=== PATIENT | female | born 1950 | race Hispanic/Latino ===

== ENCOUNTER 2018-07-29 14:04 | Emergency (ER) | payer MEDICARE ==
--- NOTE | 2018-07-29 14:15 | Emergency Department Report ---
Blank Doc - Documentation Documentation: This is a 67-year-old female that presents to the ED for [facility]. Was sent by [facility]. Denies any SI/HI. This initial assessment/diagnostic orders/clinical plan/treatment(s) is/are subject to change based on patient's health status, clinical progression and re- assessment by fellow clinical providers in the ED. Further treatment and workup at subsequent clinical providers discretion. Patient/guardians urged not to elope from the ED as their condition may be serious if not clinically assessed and managed. Initial orders include: 1- Patient sent to MAIN ED for further evaluation and treatment 2- labs 3- UA
[2018-07-29 14:44] LABS: Basophils # (Auto) 0.1 K/mm3 (0.0-0.1); Basophils % (Auto) 1.2 % (0.0-1.8); Eosinophils # (Auto) 0.3 K/mm3 (0.0-0.4); Eosinophils % (Auto) 4.2 % (0.0-4.3); Hematocrit 39.2 % (30.3-42.9); Hemoglobin 13.4 gm/dl (10.1-14.3); Lymphocytes # (Auto) 2.9 K/mm3 (1.2-5.4); Lymphocytes % (Auto) 35.3 % (13.4-35.0); Mean Corpuscular HGB Conc 34 % (30-34); Mean Corpuscular Volume 84 fl (79-97); Monocytes # (Auto) 0.5 K/mm3 (0.0-0.8); Monocytes % (Auto) 6.6 % (0.0-7.3); Platelet Count 195 K/mm3 (140-440); Red Blood Count 4.66 M/mm3 (3.65-5.03); Red Cell Distribution Width 14.8 % (13.2-15.2)
[2018-07-29 17:19] LABS: Bilirubin,Urine NEG (Negative); Blood,Urine SM (Negative); Urobilinogen,Urine < 2.0 mg/dL (<2.0)
[2018-07-29 17:20] LABS: Amphetamine Screen,Urine PRESUMPTIVE NEGATIVE; Benzodiazepines Screen,Urine PRESUMPTIVE NEGATIVE; Cannabinoid Screen,Urine PRESUMPTIVE NEGATIVE; Cocaine Screen,Urine PRESUMPTIVE NEGATIVE; Color,Urine Yellow (Yellow); Methadone Screen,Urine PRESUMPTIVE NEGATIVE; Opiate Screen,Urine PRESUMPTIVE NEGATIVE
[2018-07-29] MEDS ORDERED: ROCEPHIN/NS 1 GM/50 ML 1 GM/50 ML BAG IV ONE (18:12)
--- NOTE | 2018-07-29 18:20 | Emergency Department Report ---
ED General Adult HPI - General Chief complaint: Psych Stated complaint: MEDICAL CLEARANCE Time Seen by Provider: 07/29/18 14:13 Source: patient Mode of arrival: Ambulatory Limitations: No Limitations - History of Present Illness Initial comments: The patient presents to the emergency department for medical clearance for geriatric psych. Patient complains of some abdominal pain for the last week and painful urination. Patient denies homicidal or suicidal ideation. Patient also denies chest pain, sob, or headache. -: Gradual Location: abdomen Radiation: non-radiation Severity scale (0 -10): 3 Consistency: constant Improves with: none Worsens with: none Associated Symptoms: denies other symptoms Treatments Prior to Arrival: none - Related Data Previous Rx's Medication Instructions Recorded Last Taken Type cephALEXin [Keflex] 500 mg PO Q6HR #28 capsule 07/29/18 Unknown Rx Allergies Allergy/AdvReac Type Severity Reaction Status Date / Time ibuprofen Allergy Unknown Verified 07/29/18 14:05 morphine Allergy Unknown Verified 07/29/18 14:05 Sulfa (Sulfonamide Allergy Unknown Verified 07/29/18 14:05 Antibiotics) ED Review of Systems ROS: Stated complaint: MEDICAL CLEARANCE Other details as noted in HPI Comment: All other systems reviewed and negative Constitutional: denies: chills, fever Eyes: denies: eye pain, eye discharge, vision change ENT: denies: ear pain, throat pain Respiratory: denies: cough, shortness of breath, wheezing Cardiovascular: denies: chest pain, palpitations Endocrine: no symptoms reported Gastrointestinal: denies: abdominal pain, nausea, diarrhea Genitourinary: denies: urgency, dysuria, discharge Musculoskeletal: denies: back pain, joint swelling, arthralgia Skin: denies: rash, lesions Neurological: denies: headache, weakness, paresthesias Psychiatric: denies: anxiety, depression Hematological/Lymphatic: denies: easy bleeding, easy bruising ED Past Medical Hx - Past Medical History Hx Hypertension: Yes Hx Heart Attack/AMI: Yes Hx Diabetes: Yes - Social History Smoking Status: Never Smoker Substance Use Type: None - Medications Home Medications: Home Medications Medication Instructions Recorded Confirmed Last Taken Type cephALEXin [Keflex] 500 mg PO Q6HR #28 capsule 07/29/18 Unknown Rx ED Physical Exam - General Limitations: No Limitations General appearance: alert, in no apparent distress - Head Head exam: Present: atraumatic, normocephalic - Eye Eye exam: Present: normal appearance, PERRL, EOMI - ENT ENT exam: Present: mucous membranes moist - Neck Neck exam: Present: normal inspection - Respiratory Respiratory exam: Present: normal lung sounds bilaterally. Absent: respiratory distress - Cardiovascular Cardiovascular Exam: Present: regular rate, normal rhythm. Absent: systolic murmur, diastolic murmur, rubs, gallop - GI/Abdominal GI/Abdominal exam: Present: soft, normal bowel sounds. Absent: distended, tenderness - Extremities Exam Extremities exam: Present: normal inspection - Back Exam Back exam: Present: normal inspection - Neurological Exam Neurological exam: Present: alert, oriented X3, CN II-XII intact. Absent: motor sensory deficit - Psychiatric Psychiatric exam: Present: normal affect, normal mood - Skin Skin exam: Present: warm, dry, intact, normal color. Absent: rash ED Course Vital Signs 07/29/18 07/29/18 14:13 16:30 Temperature 97.3 F L 98.3 F Pulse Rate 73 72 Respiratory 16 16 Rate Blood Pressure 102/57 Blood Pressure 128/79 [Right] O2 Sat by Pulse 97 99 Oximetry ED Medical Decision Making - Lab Data Result diagrams: 07/29/18 14:28 07/29/18 14:28 Lab Results 07/29/18 07/29/18 07/29/18 Range/Units 14:28 14:28 14:28 WBC 8.2 (4.5-11.0) K/mm3 RBC 4.66 (3.65-5.03) M/mm3 Hgb 13.4 (10.1-14.3) gm/dl Hct 39.2 (30.3-42.9) % MCV 84 (79-97) fl MCH 29 (28-32) pg MCHC 34 (30-34) % RDW 14.8 (13.2-15.2) % Plt Count 195 (140-440) K/mm3 Lymph % (Auto) 35.3 H (13.4-35.0) % [place] % (Auto) 6.6 (0.0-7.3) % Eos % (Auto) 4.2 (0.0-4.3) % Baso % (Auto) 1.2 (0.0-1.8) % Lymph # 2.9 (1.2-5.4) K/mm3 [place] # 0.5 (0.0-0.8) K/mm3 Eos # 0.3 (0.0-0.4) K/mm3 Baso # 0.1 (0.0-0.1) K/mm3 Seg Neutrophils % 52.7 (40.0-70.0) % Seg Neutrophils # 4.3 (1.8-7.7) K/mm3 Sodium 132 L (137-145) mmol/L Potassium 3.9 (3.6-5.0) mmol/L Chloride 92.8 L (98-107) mmol/L Carbon Dioxide 21 L (22-30) mmol/L Anion Gap 22 mmol/L BUN 23 H (7-17) mg/dL Creatinine 1.4 H (0.7-1.2) mg/dL Estimated GFR 37 ml/min BUN/Creatinine Ratio 16 % Glucose 405 H (65-100) mg/dL Calcium 9.0 (8.4-10.2) mg/dL Urine Color (Yellow) Urine Turbidity (Clear) Urine pH (5.0-7.0) Ur Specific Harrison (1.003-1.030) Urine Protein (Negative) mg/dL Urine Glucose (UA) (Negative) mg/dL Urine Ketones (Negative) mg/dL Urine Blood (Negative) Urine Nitrite (Negative) Urine Bilirubin (Negative) Urine Urobilinogen (<2.0) mg/dL Ur Leukocyte Esterase (Negative) Urine WBC (Auto) (0.0-6.0) /HPF Urine RBC (Auto) (0.0-6.0) /HPF U Epithel Cells (Auto) (0-13.0) /HPF Urine WBC Clumps /HPF Salicylates < 0.3 L (2.8-20.0) mg/dL Urine Opiates Screen Urine Methadone Screen Acetaminophen (10.0-30.0) ug/mL Ur Barbiturates Screen Ur Phencyclidine Scrn Ur Amphetamines Screen U Benzodiazepines Scrn Urine Cocaine Screen U Marijuana (THC) Screen Drugs of Abuse Note Plasma/Serum Alcohol (0-0.07) % 07/29/18 07/29/18 07/29/18 Range/Units 14:28 14:28 16:54 WBC (4.5-11.0) K/mm3 RBC (3.65-5.03) M/mm3 Hgb (10.1-14.3) gm/dl Hct (30.3-42.9) % MCV (79-97) fl MCH (28-32) pg MCHC (30-34) % RDW (13.2-15.2) % Plt Count (140-440) K/mm3 Lymph % (Auto) (13.4-35.0) % [place] % (Auto) (0.0-7.3) % Eos % (Auto) (0.0-4.3) % Baso % (Auto) (0.0-1.8) % Lymph # (1.2-5.4) K/mm3 [place] # (0.0-0.8) K/mm3 Eos # (0.0-0.4) K/mm3 Baso # (0.0-0.1) K/mm3 Seg Neutrophils % (40.0-70.0) % Seg Neutrophils # (1.8-7.7) K/mm3 Sodium (137-145) mmol/L Potassium (3.6-5.0) mmol/L Chloride (98-107) mmol/L Carbon Dioxide (22-30) mmol/L Anion Gap mmol/L BUN (7-17) mg/dL Creatinine (0.7-1.2) mg/dL Estimated GFR ml/min BUN/Creatinine Ratio % Glucose (65-100) mg/dL Calcium (8.4-10.2) mg/dL Urine Color Yellow (Yellow) Urine Turbidity Cloudy (Clear) Urine pH 5.0 (5.0-7.0) Ur Specific Harrison 1.017 (1.003-1.030) Urine Protein 30 mg/dl (Negative) mg/dL Urine Glucose (UA) >=500 (Negative) mg/dL Urine Ketones Neg (Negative) mg/dL Urine Blood Sm (Negative) Urine Nitrite Neg (Negative) Urine Bilirubin Neg (Negative) Urine Urobilinogen < 2.0 (<2.0) mg/dL Ur Leukocyte Esterase Lg (Negative) Urine WBC (Auto) 167.0 H (0.0-6.0) /HPF Urine RBC (Auto) 1.0 (0.0-6.0) /HPF U Epithel Cells (Auto) < 1.0 (0-13.0) /HPF Urine WBC Clumps 1+ /HPF Salicylates (2.8-20.0) mg/dL Urine Opiates Screen Urine Methadone Screen Acetaminophen < 5.0 L (10.0-30.0) ug/mL Ur Barbiturates Screen Ur Phencyclidine Scrn Ur Amphetamines Screen U Benzodiazepines Scrn Urine Cocaine Screen U Marijuana (THC) Screen Drugs of Abuse Note Plasma/Serum Alcohol < 0.01 (0-0.07) % 07/29/18 Range/Units 16:54 WBC (4.5-11.0) K/mm3 RBC (3.65-5.03) M/mm3 Hgb (10.1-14.3) gm/dl Hct (30.3-42.9) % MCV (79-97) fl MCH (28-32) pg MCHC (30-34) % RDW (13.2-15.2) % Plt Count (140-440) K/mm3 Lymph % (Auto) (13.4-35.0) % [place] % (Auto) (0.0-7.3) % Eos % (Auto) (0.0-4.3) % Baso % (Auto) (0.0-1.8) % Lymph # (1.2-5.4) K/mm3 [place] # (0.0-0.8) K/mm3 Eos # (0.0-0.4) K/mm3 Baso # (0.0-0.1) K/mm3 Seg Neutrophils % (40.0-70.0) % Seg Neutrophils # (1.8-7.7) K/mm3 Sodium (137-145) mmol/L Potassium (3.6-5.0) mmol/L Chloride (98-107) mmol/L Carbon Dioxide (22-30) mmol/L Anion Gap mmol/L BUN (7-17) mg/dL Creatinine (0.7-1.2) mg/dL Estimated GFR ml/min BUN/Creatinine Ratio % Glucose (65-100) mg/dL Calcium (8.4-10.2) mg/dL Urine Color (Yellow) Urine Turbidity (Clear) Urine pH (5.0-7.0) Ur Specific Harrison (1.003-1.030) Urine Protein (Negative) mg/dL Urine Glucose (UA) (Negative) mg/dL Urine Ketones (Negative) mg/dL Urine Blood (Negative) Urine Nitrite (Negative) Urine Bilirubin (Negative) Urine Urobilinogen (<2.0) mg/dL Ur Leukocyte Esterase (Negative) Urine WBC (Auto) (0.0-6.0) /HPF Urine RBC (Auto) (0.0-6.0) /HPF U Epithel Cells (Auto) (0-13.0) /HPF Urine WBC Clumps /HPF Salicylates (2.8-20.0) mg/dL Urine Opiates Screen Presumptive negative Urine Methadone Screen Presumptive negative Acetaminophen (10.0-30.0) ug/mL Ur Barbiturates Screen Presumptive negative Ur Phencyclidine Scrn Presumptive negative Ur Amphetamines Screen Presumptive negative U Benzodiazepines Scrn Presumptive negative Urine Cocaine Screen Presumptive negative U Marijuana (THC) Screen Presumptive negative Drugs of Abuse Note Disclamer Plasma/Serum Alcohol (0-0.07) % - Radiology Data Radiology results: report reviewed - Medical Decision Making Discussed results with patient medically cleared for geriatric psych unit Critical care attestation.: If time is entered above; I have spent that time in minutes in the direct care of this critically ill patient, excluding procedure time. ED Disposition Clinical Impression: UTI (urinary tract infection) Disposition: TO HOME OR SELFCARE Is pt being admited?: No Does the pt Need Aspirin: No Condition: Stable Instructions: Urinary Tract Infection in Women (ED) Additional Instructions: Return if worse Prescriptions: cephALEXin [Keflex] 500 mg PO Q6HR #28 capsule Referrals: PRIMARY CARE, [Primary Care Provider] - 3-5 Days [facility] [Provider Group] - 3-5 Days [facility] [Provider Group] - 3-5 Days Time of Disposition: 18:47
--- NOTE | 2018-07-29 18:34 | Cat Scan Report ---
PROCEDURE: CT ABDOMEN PELVIS WO CON TECHNIQUE: Computerized axial tomography of the abdomen and pelvis was performed without intravenous contrast. This study is performed without intravascular contrast material and its sensitivity for ab dominal and pelvic pathology, including neoplasms, inflammation, abscess, free fluid, thrombosis, art erial dissection and infarction, is reduced compared with a contrast enhanced study. CT DOSE LENGTH PRODUCT: 858.2 mGycm HISTORY: abdominal pain COMPARISONS: None . FINDINGS: Visualized lower thorax: No significant abnormality. Liver: Normal size and attenuation. Spleen: Normal size and attenuation. Gallbladder and biliary system: There has been cholecystectomy. Pancreas: Normal. Adrenals: Normal. Kidneys: Renal vascular calcifications are present. There is a 1 cm heterogeneous lesion in the left kidney lower pole, which appears to contain a focus of fat attenuation, which may be an angiomyolipom a. GI tract: There are anastomotic sutures in the sigmoid colon. No bowel obstruction or inflammation . Small hiatal hernia Lymph nodes and mesentery: Normal. Vasculature: Normal.. Bladder: Diffuse urinary bladder wall thickening. Reproductive organs: Uterus is absent. Peritoneum: No free fluid. Musculoskeletal structures: There is hardware in the proximal right femur. Other: None. IMPRESSION: Diffuse urinary bladder wall thickening. Correlate for cystitis. Small hiatal hernia. 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 This document is electronically signed by Karen Almaguer MD., Jul 29 2018 06:33:07 PM ET
[2018-07-29] MEDS ORDERED: XYLOCAINE 1% 20 mL INFILTRATI ONE (18:48)
[2018-07-29] MEDS ORDERED: XYLOCAINE 1% MPF 5 mL INFILTRATI ONE (19:43)
[2018-07-29] MEDS ORDERED: ROCEPHIN IM ONE (19:43)
[2018-07-29] MEDS ORDERED: HumuLIN R ONE (20:11)
[2018-07-29] MEDS ORDERED: HumuLIN R SUB-Q ONE (20:13)
[2018-07-29 21:20] VITALS: BP 103/57
== END 2018-07-29 20:30 | disposition home or self-care (01) ==
LOC: ED 14:04
DX: N39.0 Urinary tract infection, site not specified (principal); I10 Essential (primary) hypertension; I25.2 Old myocardial infarction; E11.9 Type 2 diabetes mellitus without complications; Z88.6 Allergy status to analgesic agent; Z88.2 Allergy status to sulfonamides
CPT/HCPCS: 36415; 74176; 80048; 80307; 81001; 82962; 85025; 96372; 99284; G0480; J0696; 80320; J1815

== ENCOUNTER 2018-07-29 17:08 | Inpatient (IN) | payer MEDICARE ==
[2018-07-29] MEDS ORDERED: VISTARIL PO PRN (17:39)
[2018-07-29] MEDS ORDERED: HALDOL IM PRN (21:12)
[2018-07-29] MEDS ORDERED: HALDOL PO PRN (21:12)
[2018-07-29] MEDS ORDERED: ATIVAN IM PRN (21:14)
[2018-07-29] MEDS ORDERED: DESYREL PO PRN (21:16)
[2018-07-29] MEDS: BUSPAR PO PRN (22:45)
[2018-07-29] MEDS ORDERED: D50W (25GM) Syringe IV PRN (23:03)
[2018-07-30] MEDS: KEFLEX PO SCH ×4 (00:04→21:17)
--- NOTE | 2018-07-30 01:53 | Consultation ---
<ADAN SANTIAGO - Last Filed: 07/30/18 02:04> History of Present Illness - Reason for Consult Consult date: 07/29/18 DM Requesting physician: KAYLYNN MCKAY - History of Present Illness 67-year-old female who is a resident at [facility] with history of debility, insulin dependent diabetes, hypertension, hypothyr oidism, and MO. She was recently diagnosed with urinary tract infection and given Keflex for treatment. Patient is seen in consultation in the [facility] unit for medical management of diabetes and hypertension. Patient has history of noncompliance with anti-psychotic, antihypertensive, and antiglycemic medications. She was referred to [facility] for evaluation and management of psych meds. At the time of my examination patient is in bed with no signs of acute distress. She is able to follow commands and answers questions appropriately. At baseline she uses a wheelchair to assist with ambulation. She is able to ambulate independently but severe debility. Denies SI/HI, chest pain, headache, and cough. Past History Past Medical History: acute MO, diabetes, hypertension, hypothyroidism, other (psychiatric history, ) Social history: no significant social history Medications and Allergies Allergies Allergy/AdvReac Type Severity Reaction Status Date / Time ibuprofen Allergy Unknown Verified 07/29/18 14:05 morphine Allergy Unknown Verified 07/29/18 14:05 Sulfa (Sulfonamide Allergy Unknown Verified 07/29/18 14:05 Antibiotics) Home Medications Medication Instructions Recorded Confirmed Last Taken Type Insulin Glargine/Lixisenatide 36 units SUB-Q DAILY 07/29/18 07/29/18 Unknown History Levothyroxine Sodium 25 mcg PO DAILY 07/29/18 07/29/18 Unknown History NovoLOG 100 UNITS/ML VIAL 20 units SUB-Q AC 07/29/18 07/29/18 Unknown History cephALEXin [Keflex] 500 mg PO Q6HR #28 capsule 07/29/18 07/29/18 Unknown Rx Amlodipine Besylate 5 mg PO DAILY 07/30/18 07/30/18 Unknown History Atorvastatin Calcium 20 mg PO QHS 07/30/18 07/30/18 Unknown History Calcitriol [Rocaltrol] 0.25 mcg PO DAILY 07/30/18 07/30/18 Unknown History Clopidogrel 75 mg PO QHS 07/30/18 07/30/18 Unknown History Depakote Sprinkle 250 mg PO BID 07/30/18 07/30/18 Unknown History Famotidine [Pepcid] 20 mg PO QHS 07/30/18 07/30/18 Unknown History Folic Acid 400 mcg PO DAILY 07/30/18 07/30/18 Unknown History Gabapentin 400 mg PO BID 07/30/18 07/30/18 Unknown History Metoprolol Tartrate 50 mg PO BID 07/30/18 07/30/18 Unknown History Tamsulosin 0.4 mg PO QHS 07/30/18 07/30/18 Unknown History Trazodone HCl 50 mg PO QHS 07/30/18 07/30/18 Unknown History diphenhydrAMINE 25 mg PO Q8HR PRN 07/30/18 07/30/18 Unknown History oxyCODONE /ACETAMINOPHEN 5 - 325 mg PO Q8HR PRN 07/30/18 07/30/18 Unknown History Active Meds: Active Medications Buspirone HCl (Buspar) 7.5 mg PO TID PRN PRN Reason: Anxiety Last Admin: 07/29/18 22:45 Dose: 7.5 mg Documented by: Cephalexin (Keflex) 500 mg PO Q6HR RAY Last Admin: 07/30/18 00:04 Dose: 500 mg Documented by: Dextrose (D50w (25gm) Syringe) 50 ml IV PRN PRN PRN Reason: Hypoglycemia Haloperidol (Haldol) 2 mg PO Q6HR PRN PRN Reason: Agitation Haloperidol Lactate (Haldol) 2 mg IM Q6H PRN PRN Reason: Agitation Insulin Glargine (Lantus) 10 units SUB-Q BID [facility] Insulin Human Lispro (Humalog) 0 unit SUB-Q ACHS [facility]; Protocol Levothyroxine Sodium (Synthroid) 25 mcg PO DAILY@0600 [facility] Lorazepam (Ativan) 1 mg IM Q6H PRN PRN Reason: Agitation Lorazepam (Ativan) 1 mg PO Q4H PRN PRN Reason: Agitation Trazodone HCl (Desyrel) 50 mg PO QHS PRN PRN Reason: Insomnia Last Admin: 07/29/18 22:45 Dose: 50 mg Documented by: Review of Systems All systems: negative (reviewed and no additional remarkable complaints except as noted below) Gastrointestinal: abdominal pain Genitourinary Female: dysuria Exam - Physical Exam Narrative exam: Physical exam General appearance: Present: No acute distress - EENT Eyes: Present: PERRL, EOM intact ENT: hearing intact, poor dentition - Neck Neck: Present: supple, normal ROM - Respiratory Respiratory effort: Non-labored Respiratory: Clear Throughout - Cardiovascular Heart rate: 71 (bpm) Rhythm: Sinus rhythm, regular Heart Sounds: Present: S1 & S2. Absent: rub, click - Extremities Extremities: no ischemia, pulses intact, - Peripheral Assessment Peripheral Pulses: within normal limits - Abdominal General gastrointestinal: soft, non-tender, normal bowel sounds - Integumentary Integumentary: Present: warm, dry - Musculoskeletal Musculoskeletal: Limited mobility, bilateral lower extremity weakness - Psychiatric Psychiatric: cooperative - Constitutional Vitals: Temp Pulse Resp BP Pulse Ox 97.4 F L 71 18 119/71 100 07/29/18 22:00 07/29/18 22:00 07/29/18 22:00 07/29/18 22:00 07/29/18 22:00 Results - Labs Labs: Abnormal lab results 07/29/18 07/29/18 Range/Units 14:28 21:33 POC Glucose 323 H (70-105) Hemoglobin A1c 11.5 H (4-6) % Assessment and Plan UTI RANJAN HTN Insulin-dependent diabetes- uncontrolled Hypothyroidism Hyponatremia Hx of MO Psychiatric disorder- management by primary Plan: Monitor BP Resume Norvasc 5 mg daily, metoprolol 50 mg daily Continue Keflex for UTI POC BG monitoring Scheduled Lantus and SSI coverage HgbA1c 11.5 Am Labs: CMP Monitor BUN/Cr On Statin and Plavix Start Aspirin Resume home Synthroid <EZIMORADANIELLE Giovanna - Last Filed: 07/31/18 07:11> Medications and Allergies Active Meds: Active Medications Amlodipine Besylate (Norvasc) 5 mg PO DAILY [facility] Last Admin: 07/30/18 10:00 Dose: 5 mg Documented by: Aspirin (Baby Aspirin) 81 mg PO QDAY [facility] Last Admin: 07/30/18 09:59 Dose: 81 mg Documented by: Atorvastatin Calcium (Lipitor) 20 mg PO QHS [facility] Last Admin: 07/31/18 02:24 Dose: Not Given Documented by: Buspirone HCl (Buspar) 7.5 mg PO TID PRN PRN Reason: Anxiety Last Admin: 07/30/18 21:19 Dose: 7.5 mg Documented by: Calcitriol (Rocaltrol) 0.25 mcg PO DAILY [facility] Last Admin: 07/30/18 10:07 Dose: 0.25 mcg Documented by: Cephalexin (Keflex) 500 mg PO Q12HR [facility] Stop: 08/02/18 22:01 Last Admin: 07/30/18 21:17 Dose: 500 mg Documented by: Clopidogrel Bisulfate (Plavix) 75 mg PO QHS [facility] Last Admin: 07/31/18 02:25 Dose: Not Given Documented by: Dextrose (D50w (25gm) Syringe) 50 ml IV PRN PRN PRN Reason: Hypoglycemia Divalproex Sodium (Depakote Sprinkle) 250 mg PO BID [facility] Last Admin: 07/31/18 02:23 Dose: Not Given Documented by: Famotidine (Pepcid) 20 mg PO QHS [facility] Last Admin: 07/31/18 02:25 Dose: Not Given Documented by: Gabapentin (Neurontin) 400 mg PO BID [facility] Last Admin: 07/30/18 21:17 Dose: 400 mg Documented by: Haloperidol (Haldol) 2 mg PO Q6HR PRN PRN Reason: Agitation Haloperidol Lactate (Haldol) 2 mg IM Q6H PRN PRN Reason: Agitation Insulin Glargine (Lantus) 10 units SUB-Q BID [facility] Last Admin: 07/30/18 22:00 Dose: 10 units Documented by: Insulin Human Lispro (Humalog) 0 unit SUB-Q [facility]; Protocol Last Admin: 07/30/18 21:59 Dose: 6 unit Documented by: Levothyroxine Sodium (Synthroid) 25 mcg PO DAILY@0600 [facility] Last Admin: 07/31/18 07:08 Dose: 25 mcg Documented by: Lorazepam (Ativan) 1 mg IM Q6H PRN PRN Reason: Agitation Lorazepam (Ativan) 1 mg PO Q4H PRN PRN Reason: Agitation Metoprolol Tartrate (Lopressor) 50 mg PO BID [facility] Last Admin: 07/31/18 02:24 Dose: Not Given Documented by: Miscellaneous Medication (Folic Acid) 400 mcg PO DAILY [facility] Tamsulosin HCl (Flomax) 0.4 mg PO QHS [facility] Last Admin: 07/31/18 02:24 Dose: Not Given Documented by: Trazodone HCl (Desyrel) 50 mg PO QHS PRN PRN Reason: Insomnia Last Admin: 07/29/18 22:45 Dose: 50 mg Documented by: Trazodone HCl (Desyrel) 50 mg PO QHS [facility] Last Admin: 07/31/18 02:24 Dose: Not Given Documented by: Exam - Constitutional Vitals: Temp Pulse Resp BP Pulse Ox 97.8 F 69 18 166/76 99 07/30/18 21:40 07/30/18 21:40 07/30/18 21:40 07/30/18 21:40 07/30/18 21:40 Results - Labs CBC & Chem 7: 07/30/18 08:45 Labs: Abnormal lab results 07/30/18 07/30/18 07/30/18 Range/Units 08:45 11:43 16:45 Sodium 135 L (137-145) mmol/L Chloride 96.6 L (98-107) mmol/L BUN 30 H (7-17) mg/dL Glucose 297 H (65-100) mg/dL POC Glucose 249 H 336 H (70-105) Albumin 3.4 L (3.9-5) g/dL Triglycerides 335 H (2-149) mg/dL HDL Cholesterol 38 L (40-59) mg/dL 07/30/18 Range/Units 20:23 Sodium (137-145) mmol/L Chloride (98-107) mmol/L BUN (7-17) mg/dL Glucose (65-100) mg/dL POC Glucose 316 H (70-105) Albumin (3.9-5) g/dL Triglycerides (2-149) mg/dL HDL Cholesterol (40-59) mg/dL Assessment and Plan I personally discussed the patient with the [facility]. I agree with the above assessment and plan
[2018-07-30] MEDS: SYNTHROID PO SCH (05:58)
[2018-07-30] MEDS: HumaLOG SUB-Q SCH ×4 (08:19→21:59)
[2018-07-30 09:16] LABS: Albumin 3.4 g/dL (3.9-5); Calcium 8.7 mg/dL (8.4-10.2); Chol/HDL Ratio 4.57 %
[2018-07-30] MEDS: BABY ASPIRIN PO SCH (09:59)
[2018-07-30] MEDS: NEURONTIN PO SCH ×2 (09:59→21:17)
[2018-07-30] MEDS: LOPRESSOR PO SCH (09:59)
[2018-07-30] MEDS: NORVASC PO SCH (10:00)
[2018-07-30] MEDS ORDERED: FOLIC ACID 400 MCG PO SCH (10:00)
[2018-07-30] MEDS: BUSPAR PO PRN ×2 (10:02→21:19)
[2018-07-30] MEDS: ROCALTROL PO SCH (10:07)
[2018-07-30] MEDS: LANTUS SUB-Q SCH ×2 (10:08→22:00)
--- NOTE | 2018-07-30 13:59 | History and Physical Report ---
GP History & Physical - History of Present Illness Date of admission: 07/29/18 Date of Examination: 07/30/18 Reason for Admission: Danger to others, Impaired reality testing, Psychopathology interference, Severe anxiety/depression, Unable to care for self Chief Complaint: I don't know why I am here History of Present Illness: The patient is a 67-year-old female who is a resident at [facility] with history of recent UTI, debility, insulin dependent diabetes, hypertension, hypothyroidism, and MS. [facility] due to behavioral problems that could not be managed at the [facility]. Staffs at the [facility] report that the patient is combative, refuses cares and is disruptive. She is reportedly very agitated and refused to be cleaned up/have her clothes changed after after passing urine and feces on herself. In my interview with the patient, she states that she does not know why she is here. She reports being depressed and anxious but denies SI/HI/AVH/Paranoia. She endorses decreased appetite and poor sleep. Legal Status: Voluntary Patient Problems: Current Active Problems Delirium due to another medical condition (Acute) Dementia with behavioral disturbance (Acute) Reaction to Hospitalization: Accepting Substance History - Substance History Drug Use: none Past psychiatric history - Past Medical History Past Medical History: diabetes, hypertension, hypothyroidism, stroke - past Psychiatric treatment and history Psych: Anxiety (Patient reports bill she was and 3 times, was a [employer] and she is retired. She lives in a [place].) Review of Systems All systems: negative Psychiatric: anxiety, confusion, irritability Results - Results Labs/Vitals: Laboratory Last Values Sodium 135 mmol/L (137-145) L 07/30/18 08:45 Potassium 4.1 mmol/L (3.6-5.0) 07/30/18 08:45 Chloride 96.6 mmol/L (98-107) L 07/30/18 08:45 Carbon Dioxide 26 mmol/L (22-30) 07/30/18 08:45 17 mmol/L 07/30/18 08:45 BUN 30 mg/dL (7-17) H 07/30/18 08:45 1.2 mg/dL (0.7-1.2) 07/30/18 08:45 Estimated GFR 45 ml/min 07/30/18 08:45 25 % 07/30/18 08:45 Glucose 297 mg/dL (65-100) H 07/30/18 08:45 POC Glucose 278 (70-105) H 07/30/18 06:40 11.5 % (4-6) H 07/29/18 14:28 Calcium 8.7 mg/dL (8.4-10.2) 07/30/18 08:45 0.20 mg/dL (0.1-1.2) 07/30/18 08:45 AST 10 units/L (5-40) 07/30/18 08:45 ALT 9 units/L (7-56) 07/30/18 08:45 92 units/L (35-129) 07/30/18 08:45 6.7 g/dL (6.3-8.2) 07/30/18 08:45 3.4 g/dL (3.9-5) L 07/30/18 08:45 1.0 % 07/30/18 08:45 Triglycerides 335 mg/dL (2-149) H 07/30/18 08:45 Cholesterol 174 mg/dL (50-199) 07/30/18 08:45 103 mg/dL (50-130) 07/30/18 08:45 38 mg/dL (40-59) L 07/30/18 08:45 4.57 % 07/30/18 08:45 Last Vital Signs Temp 97.9 F 07/30/18 09:27 Pulse 78 07/30/18 10:00 Resp 16 07/30/18 09:00 BP 137/62 07/30/18 10:00 Pulse Ox 98 07/30/18 09:27 Physical Examination - Constitutional Vitals: Vital Signs Temp Pulse Resp BP Pulse Ox 97.9 F 78 16 137/62 98 07/30/18 09:27 07/30/18 10:00 07/30/18 09:00 07/30/18 10:00 07/30/18 09:27 Temperature -Last 24 Hours Temperature 97.9 F Temperature 97.9 F Temperature 97.5 F Temperature 97.4 F General appearance: Present: no acute distress - EENT Eyes: Present: PERRL, EOM intact ENT: hearing intact, clear oral mucosa - Neck Neck: Present: supple, normal ROM - Respiratory Respiratory effort: normal Mental Status Exam - Vital signs Last Vital Signs Temp 97.9 F 07/30/18 09:27 Pulse 78 07/30/18 10:00 Resp 16 07/30/18 09:00 BP 137/62 07/30/18 10:00 Pulse Ox 98 07/30/18 09:27 - Exam Orientation: place, person Affect: depressed, anxious Mood: congruent with affect Thought Process: Goal Oriented Perceptions: none Speech: normal rate and pattern Concentration: focused Motor activity: agitated Level of consciousness: alert Assessment and Plan - Psychiatric problem (1) Dementia with behavioral disturbance Current Visit: Yes Status: Acute (2) Delirium due to another medical condition Current Visit: Yes Status: Acute (3) UTI (urinary tract infection) Current Visit: No Status: Acute Physician Certification - Certification Statement Physician Certification Statement: This is an acknowledgement statement that ROXANNE LANE is a 67 year old F who requires inpatient psychiatric admission for treatment which could reasonably be expected to improve the patient's condition for Depression Estimated period of time patient will need to remain in the hospital: 7 Plan for post-hospital care: Out-patient care. Plan: Patient will be admitted for inpatient psychiatric evaluation, medication adjustment and close monitoring The patient's behavior, mood, sleep and appetite will be closely monitored. Patient will be enrolled in individual and group therapeutic sessions and encouraged to attend. Patient will be provided with a safe and structured environment. Patient's physical health needs will be addressed by the Hospitalist. Social Assessment will be completed and the Websphere Commerce Consultant will work with patient and family to ensure a suitable and safe disposition Medication adjustment will be made as clinically indicated The patient agreed on the treatment plan, understood the risk, benefit, alternative treatment, potential consequence of no treatment, and gave informed consent.
--- NOTE | 2018-07-30 15:49 | Progress Note ---
Assessment and Plan Assessment and plan: Hospitalist Resident Engineer for DM Patient is a 67-year-old female who is a resident at [facility] with history of debility, insulin dependent diabetes, hypertension, hypothyroidism, and WI. She was recently diagnosed with urinary tract infection and given Keflex for treatment. Patient is seen in consultation in the [facility] for medical management of diabetes and hypertension. Patient has history of noncompliance with anti-psychotic, antihypertensive, and antiglycemic medications. She was referred to [facility] for evaluation and management of psych meds. At the time of my examination patient is in bed with no signs of acute distress. She is able to follow commands and answers questions appropriately. At baseline she uses a wheelchair to assist with am bulation. She is able to ambulate independently but severe debility. DM type 2, uncontrolled hyperglycemia, a1c 11.5, so patient runs very high. UTI, Continue Keflex for UTI, uctx not sent and already on abx, will give for 5 days. RANJAN, vasomotor nephropathy, Cr went from 1.4 to 1.2 HTN Resume Norvasc 5 mg daily, metoprolol 50 mg daily Hypothyroidism: Resume home Synthroid Hyponatremia dehydration, improving Hx of WI Psychiatric disorder- management by primary signing off, page me with any questions. History Interval history: Patient was seen and examined. Follow-up on current diagnosis for DM. No overnight events reported to me. Patient denies any chest pain, shortness breath, nausea/vomiting or severe headaches. Imaging, nursing note, chart, labs and old chart reviewed. Discussed with patient. Gen: WDWN, NAD, Awake, Alert, Orientated HEENT: NCAT, EOMI, PERRL, OP Clear Neck: supple, no adenopathy, no thyromegaly, no JVD CVS/Heart: RRR, normal S1S2, pulses present bilaterally Chest/Lungs: CTA B, Symmetrical chest expansion, good air entry bilaterally GI/Abdomen: soft, NTND, good bowel sounds, no guarding or rebound /Bladder: no suprapubic tenderness, no CVA or paraspinal tenderness Extermity/Skin: no c/c/e, no obvious rash MSK: FROM x 4 Neuro: CN 2-12 grossly intact, no new focal deficits Psych: calm Hospitalist Physical - Constitutional Vitals: Temp Pulse Resp BP Pulse Ox 97.9 F 78 16 137/62 98 07/30/18 09:27 07/30/18 10:00 07/30/18 09:00 07/30/18 10:00 07/30/18 09:27 Results - Labs CBC & Chem 7: 07/30/18 08:45 Labs: Laboratory Last Values Sodium 135 mmol/L (137-145) L 07/30/18 08:45 Potassium 4.1 mmol/L (3.6-5.0) 07/30/18 08:45 Chloride 96.6 mmol/L (98-107) L 07/30/18 08:45 Carbon Dioxide 26 mmol/L (22-30) 07/30/18 08:45 17 mmol/L 07/30/18 08:45 BUN 30 mg/dL (7-17) H 07/30/18 08:45 1.2 mg/dL (0.7-1.2) 07/30/18 08:45 Estimated GFR 45 ml/min 07/30/18 08:45 25 % 07/30/18 08:45 Glucose 297 mg/dL (65-100) H 07/30/18 08:45 POC Glucose 278 (70-105) H 07/30/18 06:40 11.5 % (4-6) H 07/29/18 14:28 Calcium 8.7 mg/dL (8.4-10.2) 07/30/18 08:45 0.20 mg/dL (0.1-1.2) 07/30/18 08:45 AST 10 units/L (5-40) 07/30/18 08:45 ALT 9 units/L (7-56) 07/30/18 08:45 92 units/L (35-129) 07/30/18 08:45 6.7 g/dL (6.3-8.2) 07/30/18 08:45 3.4 g/dL (3.9-5) L 07/30/18 08:45 1.0 % 07/30/18 08:45 Triglycerides 335 mg/dL (2-149) H 07/30/18 08:45 Cholesterol 174 mg/dL (50-199) 07/30/18 08:45 103 mg/dL (50-130) 07/30/18 08:45 38 mg/dL (40-59) L 07/30/18 08:45 4.57 % 07/30/18 08:45 Active Medications - Current Medications Current Medications: Generic Name Dose Route Start Last Admin Trade Name Freq PRN Reason Stop Dose Admin Amlodipine Besylate 5 mg 07/30/18 10:00 07/30/18 10:00 Norvasc PO 5 mg DAILY RAY Administration Aspirin 81 mg 07/30/18 10:00 07/30/18 09:59 Baby Aspirin PO 81 mg QDAY RAY Administration Atorvastatin Calcium 20 mg 07/30/18 22:00 Lipitor PO QHS RAY Buspirone HCl 7.5 mg 07/29/18 21:07 07/30/18 10:02 Buspar PO 7.5 mg TID PRN Administration Anxiety Calcitriol 0.25 mcg 07/30/18 10:00 07/30/18 10:07 Rocaltrol PO 0.25 mcg DAILY RAY Administration Cephalexin 500 mg 07/30/18 00:00 07/30/18 12:37 Keflex PO 500 mg Q6HR RAY Administration Clopidogrel Bisulfate 75 mg 07/30/18 22:00 Plavix PO QHS PENDING SALE TO [facility] Dextrose 50 ml 07/29/18 23:03 D50w (25gm) Syringe IV PRN PRN Hypoglycemia Divalproex Sodium 250 mg 07/30/18 10:00 07/30/18 10:08 Depakote Sprinkle PO 250 mg BID RAY Administration Famotidine 20 mg 07/30/18 22:00 Pepcid PO QHS PENDING SALE TO [facility] Gabapentin 400 mg 07/30/18 10:00 07/30/18 09:59 Neurontin PO 400 mg BID RAY Administration Haloperidol 2 mg 07/29/18 21:12 Haldol PO Q6HR PRN Agitation Haloperidol Lactate 2 mg 07/29/18 21:12 Haldol IM Q6H PRN Agitation Insulin Glargine 10 units 07/30/18 10:00 07/30/18 10:08 Lantus SUB-Q 10 units BID RAY Administration Insulin Human Lispro 0 unit 07/30/18 07:30 07/30/18 12:36 Humalog SUB-Q 3 unit ACHS RAY Administration Protocol Levothyroxine Sodium 25 mcg 07/30/18 06:00 07/30/18 05:58 Synthroid PO 25 mcg DAILY@0600 RAY Administration Lorazepam 1 mg 07/29/18 21:14 Ativan IM Q6H PRN Agitation Lorazepam 1 mg 07/29/18 21:14 Ativan PO Q4H PRN Agitation Metoprolol Tartrate 50 mg 07/30/18 10:00 07/30/18 09:59 Lopressor PO 50 mg BID RAY Administration Miscellaneous Medication 400 mcg 07/30/18 10:00 Folic Acid PO DAILY PENDING SALE TO [facility] Tamsulosin HCl 0.4 mg 07/30/18 22:00 Flomax PO QHS RAY Trazodone HCl 50 mg 07/29/18 21:16 07/29/18 22:45 Desyrel PO 50 mg QHS PRN Administration Insomnia Trazodone HCl 50 mg 07/30/18 22:00 Desyrel PO QHS RAY
[2018-07-30] MEDS ORDERED: DESYREL PO SCH (22:00)
[2018-07-30] MEDS ORDERED: LANTUS SUB-Q SCH (22:00)
[2018-07-31] MEDS: FLOMAX PO SCH ×2 (02:24→21:27)
[2018-07-31] MEDS: LOPRESSOR PO SCH ×2 (02:24→09:26)
[2018-07-31] MEDS: PLAVIX PO SCH ×2 (02:25→22:30)
[2018-07-31] MEDS: PEPCID PO SCH ×2 (02:25→22:30)
[2018-07-31] MEDS: SYNTHROID PO SCH ×2 (07:08→07:25)
[2018-07-31] MEDS: HumaLOG SUB-Q SCH ×4 (08:08→22:00)
[2018-07-31] MEDS: BABY ASPIRIN PO SCH (09:27)
[2018-07-31] MEDS: NORVASC PO SCH (09:27)
[2018-07-31] MEDS: NEURONTIN PO SCH ×3 (09:27→21:27)
[2018-07-31] MEDS: ROCALTROL PO SCH (09:28)
[2018-07-31] MEDS: KEFLEX PO SCH ×2 (09:28→21:35)
[2018-07-31] MEDS: LANTUS SUB-Q SCH ×2 (10:13→22:30)
--- NOTE | 2018-07-31 11:54 | Progress Note ---
Subjective Date of service: 07/31/18 Principal diagnosis: Dementia with behavioral disturbance Subjective Comment: Patient is irritable, depressed, uncooperative with cares and verbally abusive towards staffs. She reports that she did not sleep well last night. Appetite is good. She denies hallucinations, SI/HI. No medication side effect Objective - Criteria for Continued Treatment Criteria for Continued Treatment: Improving Level of Functioning, Improving Treatment / Medication Compliance, Stablizing Level of Functioning, Improving Emotional/Socia - Mental Status Mental Status: Oriented x [address] - Objective Observation Participation Level: Moderate Assessment and Plan - Patient Problems (1) Dementia with behavioral disturbance Current Visit: Yes Status: Acute Plan to address problem: Patient will be admitted for inpatient psychiatric evaluation, medication adjustment and close monitoring The patient's behavior, mood, sleep and appetite will be closely monitored. Patient will be enrolled in individual and group therapeutic sessions and encouraged to attend. Patient will be provided with a safe and structured environment. Patient's physical health needs will be addressed by the Hospitalist. Social Assessment will be completed and the Superintendent Construction will work with patient and family to ensure a suitable and safe disposition Medication adjustment will be made as clinically indicated. Increase Depakote to 250mg tid and Gabapentin to 300mg tid. for mood and anxiety Start Seroquel 50mg qhs for delirium and agitation Start Melatonin 5mg qhs for sleep/wake cycle regulation Discontinue scheduled Trazodone The patient agreed on the treatment plan, understood the risk, benefit, alternative treatment, potential consequence of no treatment, and gave informed consent. ELOS 5 days (2) Delirium due to another medical condition Current Visit: Yes Status: Acute (3) UTI (urinary tract infection) Current Visit: No Status: Acute
[2018-07-31] MEDS: celeXA PO SCH (13:36)
[2018-07-31] MEDS ORDERED: NEURONTIN PO SCH (14:00)
[2018-07-31] MEDS: ATIVAN PO PRN (21:25)
[2018-07-31] MEDS: MELATONIN PO SCH (21:31)
[2018-08-01] MEDS: LOPRESSOR PO SCH ×3 (06:22→18:27)
[2018-08-01] MEDS: SYNTHROID PO SCH (06:23)
[2018-08-01] MEDS: NEURONTIN PO SCH ×3 (06:23→21:16)
[2018-08-01] MEDS: HumaLOG SUB-Q SCH ×4 (09:10→21:17)
[2018-08-01] MEDS: LANTUS SUB-Q SCH ×2 (09:11→21:18)
[2018-08-01] MEDS: BABY ASPIRIN PO SCH (11:05)
[2018-08-01] MEDS: celeXA PO SCH (11:06)
[2018-08-01] MEDS: NORVASC PO SCH (11:06)
[2018-08-01] MEDS: KEFLEX PO SCH ×2 (11:06→21:18)
[2018-08-01] MEDS: ROCALTROL PO SCH (11:11)
--- NOTE | 2018-08-01 18:57 | Progress Note ---
Subjective Date of service: 08/01/18 Principal diagnosis: Dementia with behavioral disturbance Subjective Comment: Patient is improving. She is less irritable, no outbursts today. She slept better last night. Appetite is good. She denies hallucinations, SI/HI. No medication side effect Objective - Criteria for Continued Treatment Criteria for Continued Treatment: Improving Level of Functioning, Improving Treatment / Medication Compliance, Stablizing Level of Functioning, Improving Emotional/Socia - Mental Status Mental Status: Oriented x [address] - Objective Observation Participation Level: Moderate Assessment and Plan - Patient Problems (1) Dementia with behavioral disturbance Current Visit: Yes Status: Acute Plan to address problem: Patient will be admitted for inpatient psychiatric evaluation, medication adjustment and close monitoring The patient's behavior, mood, sleep and appetite will be closely monitored. Patient will be enrolled in individual and group therapeutic sessions and encouraged to attend. Patient will be provided with a safe and structured environment. Patient's physical health needs will be addressed by the Hospitalist. Social Assessment will be completed and the Personnel Adviser will work with patient and family to ensure a suitable and safe disposition Medication adjustment will be made as clinically indicated. Continue Depakote 250mg tid and Gabapentin 300mg tid. for mood and anxiety Continue Seroquel 50mg qhs for delirium and agitation Continue Melatonin 5mg qhs for sleep/wake cycle regulation The patient agreed on the treatment plan, understood the risk, benefit, alternative treatment, potential consequence of no treatment, and gave informed consent. ELOS 2 days (2) Delirium due to another medical condition Current Visit: Yes Status: Acute (3) UTI (urinary tract infection) Current Visit: No Status: Acute
[2018-08-01] MEDS: FLOMAX PO SCH (21:17)
[2018-08-01] MEDS: MELATONIN PO SCH (21:19)
[2018-08-01] MEDS: PEPCID PO SCH (21:19)
[2018-08-01] MEDS: PLAVIX PO SCH (21:19)
[2018-08-02] MEDS: SYNTHROID PO SCH (05:59)
[2018-08-02] MEDS: LOPRESSOR PO SCH ×2 (05:59→17:30)
[2018-08-02] MEDS: HumaLOG SUB-Q SCH ×4 (09:08→21:31)
[2018-08-02] MEDS: NEURONTIN PO SCH ×3 (09:10→20:49)
[2018-08-02] MEDS: celeXA PO SCH (09:12)
[2018-08-02] MEDS: KEFLEX PO SCH ×2 (09:12→21:35)
[2018-08-02] MEDS: BABY ASPIRIN PO SCH (09:12)
[2018-08-02] MEDS: ROCALTROL PO SCH (09:13)
[2018-08-02] MEDS: NORVASC PO SCH (09:15)
[2018-08-02] MEDS: LANTUS SUB-Q SCH ×2 (09:38→21:31)
[2018-08-02] MEDS: ATIVAN PO PRN (09:39)
[2018-08-02] MEDS: FLOMAX PO SCH (21:35)
[2018-08-02] MEDS: MELATONIN PO SCH (21:36)
[2018-08-02] MEDS: PEPCID PO SCH (21:36)
[2018-08-02] MEDS: PLAVIX PO SCH (21:36)
[2018-08-03] MEDS: LOPRESSOR PO SCH ×2 (05:52→17:36)
[2018-08-03] MEDS: SYNTHROID PO SCH (05:53)
--- NOTE | 2018-08-03 07:03 | Progress Note ---
Subjective Date of service: 08/02/18 Principal diagnosis: Dementia with behavioral disturbance Subjective Comment: Patient is doing well. She uses profanities at times but she is less irritable. She slept well last night. Appetite is good. She denies hallucinations, SI/HI. No medication side effect Objective - Criteria for Continued Treatment Criteria for Continued Treatment: Improving Level of Functioning, Improving Treatment / Medication Compliance, Stablizing Level of Functioning, Improving Emotional/Socia - Mental Status Mental Status: Oriented x [address] - Objective Observation Participation Level: Moderate Assessment and Plan - Patient Problems (1) Dementia with behavioral disturbance Current Visit: Yes Status: Acute Plan to address problem: Patient will be admitted for inpatient psychiatric evaluation, medication adjustment and close monitoring The patient's behavior, mood, sleep and appetite will be closely monitored. Patient will be enrolled in individual and group therapeutic sessions and encouraged to attend. Patient will be provided with a safe and structured environment. Patient's physical health needs will be addressed by the Hospitalist. Social Assessment will be completed and the Wildlife Biology Technician will work with patient and family to ensure a suitable and safe disposition Medication adjustment will be made as clinically indicated. Continue Depakote 250mg tid and Gabapentin 300mg tid. for mood and anxiety Continue Seroquel 50mg qhs for delirium and agitation Continue Melatonin 5mg qhs for sleep/wake cycle regulation The patient agreed on the treatment plan, understood the risk, benefit, alternative treatment, potential consequence of no treatment, and gave informed consent. ELOS 1 days (2) Delirium due to another medical condition Current Visit: Yes Status: Acute (3) UTI (urinary tract infection) Current Visit: No Status: Acute
[2018-08-03] MEDS: HumaLOG SUB-Q SCH ×4 (08:59→21:14)
[2018-08-03] MEDS: NEURONTIN PO SCH ×3 (09:03→19:53)
[2018-08-03] MEDS: NORVASC PO SCH (09:49)
[2018-08-03] MEDS: ROCALTROL PO SCH (09:49)
[2018-08-03] MEDS: celeXA PO SCH (09:49)
[2018-08-03] MEDS: BABY ASPIRIN PO SCH (09:50)
[2018-08-03] MEDS: LANTUS SUB-Q SCH ×2 (09:52→21:15)
--- NOTE | 2018-08-03 10:47 | Progress Note ---
Subjective Date of service: 08/03/18 Principal diagnosis: Dementia with behavioral disturbance Subjective Comment: Patient is fine this morning. She is cooperative with cares and takes her medications. She slept well last night. Appetite is good. She denies hallucinations, SI/HI. No medication side effect. She is scheduled for discharge in am tomorrow. Objective - Criteria for Continued Treatment Criteria for Continued Treatment: Improving Level of Functioning, Improving Treatment / Medication Compliance, Stablizing Level of Functioning, Improving Emotional/Socia - Mental Status Mental Status: Oriented x [address] - Objective Observation Participation Level: Moderate Assessment and Plan - Patient Problems (1) Dementia with behavioral disturbance Current Visit: Yes Status: Acute Plan to address problem: Patient will be admitted for inpatient psychiatric evaluation, medication adjustment and close monitoring The patient's behavior, mood, sleep and appetite will be closely monitored. Patient will be enrolled in individual and group therapeutic sessions and encouraged to attend. Patient will be provided with a safe and structured environment. Patient's physical health needs will be addressed by the Hospitalist. Social Assessment will be completed and the Rent And Housing Investigator will work with patient and family to ensure a suitable and safe disposition Medication adjustment will be made as clinically indicated. Continue Depakote 250mg tid and Gabapentin 300mg tid. for mood and anxiety Continue Seroquel 50mg qhs for delirium and agitation Continue Melatonin 5mg qhs for sleep/wake cycle regulation The patient agreed on the treatment plan, understood the risk, benefit, alternative treatment, potential consequence of no treatment, and gave informed consent. ELOS 1 days (2) Delirium due to another medical condition Current Visit: Yes Status: Acute (3) UTI (urinary tract infection) Current Visit: No Status: Acute
[2018-08-03] MEDS: FLOMAX PO SCH (21:14)
[2018-08-03] MEDS: MELATONIN PO SCH (21:15)
[2018-08-03] MEDS: PEPCID PO SCH (21:16)
[2018-08-03] MEDS: PLAVIX PO SCH (21:16)
[2018-08-04 06:04] VITALS: BP 144/61
[2018-08-04] MEDS: LOPRESSOR PO SCH (06:06)
[2018-08-04] MEDS: SYNTHROID PO SCH (06:06)
[2018-08-04] MEDS ORDERED: WELLBUTRIN SR PO ONE (08:05)
[2018-08-04] MEDS: HumaLOG SUB-Q SCH ×2 (08:11→11:54)
[2018-08-04] MEDS: NEURONTIN PO SCH (08:13)
--- NOTE | 2018-08-04 10:27 | Discharge Summary ---
Providers - Providers Date of Admission: 07/29/18 21:35 Date of discharge: 08/04/18 Attending physician: KAYLYNN MCKAY MD 07/29/18 17:31 Consult to Physician [CONS] Routine Comment: Consulting Provider: MERVIN CASTANON Physician Instructions: History & Physical Reason For Exam: medical management Primary care physician: DUST COLLECTOR ATTENDANT Hospitalization Reason for admission: She was combative, disruptive and refsed care at the [facility] Condition: Good Hospital course: The patient was provided inpatient psychiatric treatment with safe and supportive environment, group therapy, individual counseling, psychiatric medication, medication adjustment, adverse effect monitor, medical evaluation, medical treatment, social service assessment, family/social support meeting, placement assessment and psycho-education. The patients mood, anxiety, thoughts, stress management skill, cognition, impulse/anger control, motivation, understanding of disease, compliance to treatment and appreciation on family/social support are improved and stabilized. At the time of discharge, the patient had no suicidal ideas, no homicidal ideas, no aggressive thoughts, no endangering behavior and no debilitating adverse effects. The patient agreed on the treatment plan, understood the risk, benefit, alternative treatment, potential consequence of no treatment, and gave informed consent. The patient was advised to be compliant with medications, not to use drugs and not to drink alcohol. The patient understands that if suicidal ideas, homicidal ideas, or any endangering thoughts arise, the patient should immediately seek for emergent assistance including but not limited to crisis hot line and emergency room. Follow up with out-patient Psychiatrist and PCP within 14 - 21 days of discharge. Disposition: [facility] MEDICARE CERT [facility] Allergies/Adverse Reactions: Allergies ibuprofen Allergy (Verified 07/29/18 14:05) Unknown morphine Allergy (Verified 07/29/18 14:05) Unknown Sulfa (Sulfonamide Antibiotics) Allergy (Verified 07/29/18 14:05) Unknown Vital Signs: Last Vital Signs Temp 97.9 F 08/04/18 06:01 Pulse 70 08/04/18 09:16 Resp 18 08/04/18 09:16 BP 144/61 08/04/18 09:16 Pulse Ox 94 08/04/18 06:01 Last Lab: Laboratory Last Values Sodium 135 mmol/L (137-145) L 07/30/18 08:45 Potassium 4.1 mmol/L (3.6-5.0) 07/30/18 08:45 Chloride 96.6 mmol/L (98-107) L 07/30/18 08:45 Carbon Dioxide 26 mmol/L (22-30) 07/30/18 08:45 17 mmol/L 07/30/18 08:45 BUN 30 mg/dL (7-17) H 07/30/18 08:45 1.2 mg/dL (0.7-1.2) 07/30/18 08:45 Estimated GFR 45 ml/min 07/30/18 08:45 25 % 07/30/18 08:45 Glucose 297 mg/dL (65-100) H 07/30/18 08:45 POC Glucose 288 (70-105) H 08/04/18 06:40 11.5 % (4-6) H 07/29/18 14:28 Calcium 8.7 mg/dL (8.4-10.2) 07/30/18 08:45 0.20 mg/dL (0.1-1.2) 07/30/18 08:45 AST 10 units/L (5-40) 07/30/18 08:45 ALT 9 units/L (7-56) 07/30/18 08:45 92 units/L (35-129) 07/30/18 08:45 6.7 g/dL (6.3-8.2) 07/30/18 08:45 3.4 g/dL (3.9-5) L 07/30/18 08:45 1.0 % 07/30/18 08:45 Triglycerides 335 mg/dL (2-149) H 07/30/18 08:45 Cholesterol 174 mg/dL (50-199) 07/30/18 08:45 103 mg/dL (50-130) 07/30/18 08:45 38 mg/dL (40-59) L 07/30/18 08:45 4.57 % 07/30/18 08:45 - Discharge Diagnoses (1) Dementia with behavioral disturbance Status: Acute (2) Delirium due to another medical condition Status: Acute (3) UTI (urinary tract infection) Status: Acute Core Measure Documentation - Palliative Care Palliative Care/ Comfort Measures: Not Applicable - Core Measures Any of the following diagnoses?: none - VTE Discharge Requirements Deep Vein Thrombosis/Pulmonary Embolism Present on Admission: No Has pt received <5 days of overlap therapy or INR<2.0: No Anticoagulant overlap therapy prescribed at discharge: No Contraindication No Overlap Therapy order at DC: Not Indicated Exam - Constitutional Vitals: Temp Pulse Resp BP Pulse Ox 97.9 F 70 18 144/61 94 08/04/18 06:01 08/04/18 09:16 08/04/18 09:16 08/04/18 09:16 08/04/18 06:01 General appearance: Present: no acute distress, well-nourished - EENT Eyes: Present: PERRL, EOM intact ENT: hearing intact, clear oral mucosa - Neck Neck: Present: supple, normal ROM - Respiratory Respiratory effort: normal Plan Activity: fall precautions Weight Bearing Status: Weight Bear as Tolerated Diet: regular Follow up with: PRIMARY CARE,MD [Primary Care Provider] - 7 Days Prescriptions: Melatonin [Melatonin 5MG TAB] 5 mg PO QHS #30 tablet QUEtiapine [SEROquel] 50 mg PO QHS #30 tablet Trazodone HCl 50 mg PO QHS PRN #30 PRN Reason: Insomnia Aspirin [Aspirin BABY CHEW TAB] 81 mg PO QDAY #30 tab.chew Citalopram [celeXA] 10 mg PO QDAY 30 Days tablet Divalproex Sprinkle [Depakote Sprinkle] 250 mg PO TID #120 capsule Gabapentin [Neurontin] 300 mg PO TID #90 capsule
[2018-08-04] MEDS: ROCALTROL PO SCH (10:34)
[2018-08-04] MEDS: LANTUS SUB-Q SCH (10:35)
[2018-08-04] MEDS: BUSPAR PO PRN (10:35)
[2018-08-04] MEDS: NORVASC PO SCH (10:36)
[2018-08-04] MEDS: celeXA PO SCH (10:36)
[2018-08-04] MEDS: BABY ASPIRIN PO SCH (10:36)
== END 2018-08-04 12:33 | DRG 884 ==
LOC: 3A 17:08 → UNDOADMIN 17:08 → 5A 21:35
PROVIDERS: ADMIT Psychiatry & Neurology Psychiatry; ATTEND Psychiatry & Neurology Psychiatry
DX: F03.91 Unspecified dementia, unspecified severity, with behavioral disturbance (principal); N17.0 Acute kidney failure with tubular necrosis; N39.0 Urinary tract infection, site not specified; E87.1 Hypo-osmolality and hyponatremia; F05 Delirium due to known physiological condition; I10 Essential (primary) hypertension; E11.65 Type 2 diabetes mellitus with hyperglycemia; E03.9 Hypothyroidism, unspecified; E11.9 Type 2 diabetes mellitus without complications; I25.2 Old myocardial infarction; Z88.6 Allergy status to analgesic agent; Z88.2 Allergy status to sulfonamides; Z88.8 Allergy status to other drugs, medicaments and biological substances; Z79.4 Long term (current) use of insulin; Z82.3 Family history of stroke
CPT/HCPCS: 36415; 74176; 80048; 80053; 80061; 80307; 80320; 81001; 82962; 83036; 85025; 96372; 99284; G0378; A9270-GY; G0480; J0696; J1815